=== PATIENT | male | born 1995 | race Caucasian/White ===

== ENCOUNTER 2020-06-15 15:36 | Inpatient (IN) | payer BC, OTHER ==
[2020-06-15 16:07] VITALS: BMI 26.2
--- OUTSIDE RECORDS SUMMARY | 2020-06-15 16:32 | XMS ---
:1995 Author Organization [facility] Care Team Providers Name Role Phone STU CASSIDY Unavailable Unavailable Re-disclosure Warning The records that you are about to access may contain information from federally- assisted alcohol or drug abuse programs. If such information is present, then the following federally mandated warning applies: This information has been disclosed to you from records protected by federal confidentiality rules (42 CFR part 2). The federal rules prohibit you from making any further disclosure of this information unless further disclosure is expressly permitted by the written consent of the person to whom it pertains or as otherwise permitted by 42 CFR part 2. A general authorization for the release of medical or other information is NOT sufficient for this purpose. The Federal rules restrict any use of the information to criminally investigate or prosecute any alcohol or drug abuse patient.The records that you are about to access may contain highly sensitive health information, the redisclosure of which is protected by Article 27-F of the [facility] Public Health law. If you continue you may haveaccess to information: Regarding HIV / AIDS; Provided by facilities licensed or operated by the [facility] Office of Mental Health; or Provided by the [facility] Office for People With Developmental Disabilities. If such information is present, then the following [facility] mandated warning applies: This information has been disclosed to you from confidential records which are protected by state law. State law prohibits you from making any further disclosure of this information without the specific written consent of the person to whom it pertains, or as otherwise permitted by law. Any unauthorized further disclosure in violation of state law may result in a fine or senior living sentence or both. A general authorization for the release of medical or other information is NOT sufficient authorization for further disclosure. Encounters Encounter Providers Location Date Indications Data Source(s ) Outpatient Attender: ANGE, 12/18/2019 Z03.818 [facility] STU CuevaAdmitter: 02:52:00 AM Health Care STU CASSIDY EDT Corpora tion Z03.818 Insurance Providers Payer name Policy type / Policy ID Covered Covered libertarian's Policy Plan Coverage type libertarian ID relationship to English Information english GHI CBP [id number] SP [id number] OUTPT BC PPO [id number] SP [id number] Problems, Conditions, and Diagnoses Code Display Name Description Problem Type Effective Data Sour ce(s) Dates Z03.818 Encounter for ENCNTR FOR OBS Diagnosis 12/18/2019 [facility] observation for FOR SUSP EXPSR TO 02:52:00 AM [facility] suspected OTH BIOLG AGENTS [employer] poration exposure to other RULED OUT biological agents ruled out Results ID Date Data Source [id number] 12/18/2019 12:00:00 AM EDT [facility] Name Value Range Interpretation Code Description Data Margarita rce(s) Supporting Document(s ) 2019-nCoV [facility] RNA XXX TERESA+probe- Imp This lab was ordered by [facility] and reported by [employer] Procedure
[2020-06-15] MEDS ORDERED: KETOROLAC TROMETHAMINE 30 MG/1 ML VIAL IVPUSH ONE (16:42)
[2020-06-15] MEDS ORDERED: PANTOPRAZOLE SODIUM 40 MG VIAL IVPUSH ONE (16:42)
--- NOTE | 2020-06-15 16:45 | PDOC ---
History of Present Illness - General Chief Complaint: Pain Stated Complaint: ABD.PAIN Time Seen by Provider: 06/15/20 16:15 History Source: Patient Exam Limitations: No Limitations - History of Present Illness Initial Comments: 06/15/20 16:43 25 year-old male no significant past medical history presents the ED with 2 weeks of left upper quadrant pain. Of note patient was recently COVID positive in December. Patient describes the pain as sharp constant worse with lying down and with palpation. There is no associated nausea vomiting or diarrhea. Patient was seen and evaluated at Dr. Agustin's office and sent to the emergency room for further evaluation and potential admission. Pt otherwise denies: fevers, chills, syncope, lightheadedness, dizziness, headaches, neck pain, chest pain, shortness of breath, palpitations, back pain, nausea, vomiting, diarrhea, constipation. 06/15/20 21:59 Past History - Medical History Allergies/Adverse Reactions: Allergies Allergy/AdvReac Type Severity Reaction Status Date / Time No Known Allergies Allergy Verified 06/15/20 16:02 Home Medications: Ambulatory Orders NK [No Known Home Medication] 06/15/20 COPD: No - Psycho-Social/Smoking History Smoking History: Never smoked Have you smoked in the past 12 months: No - Substance Abuse Hx (Audit-C & DAST Scrn) How often the patient has a drink containing alcohol: Never Score: In Men: 4 or > Positive; In Women: 3 or > Positive: 0 Screen Result (Pos requires Nsg. Audit-10AR): Negative In the last yr the pt used illegal drug/Rx for NonMed reason: No Score: Yes response is considered Positive: 0 Screen Result (Positive result requires Nsg. DAST-10): Negative *Physical Exam - Vital Signs Last Vital Signs Temp Pulse Resp BP Pulse Ox 97.6 F 88 16 127/69 100 06/15/20 16:02 06/15/20 16:02 06/15/20 16:02 06/15/20 16:02 06/15/20 16:02 - Physical Exam 06/15/20 16:44 Gen: AAOx 3, no acute distress, comfortable, no signs of respiratory distress HENT: atraumatic, normocephalic with no laceration or contusion. Nasal mucosa without erythema. Oropharynx without erythema or exudates. Mucous membranes mo ist. EYES: PERRL, EOM intact, conjunctiva pink NECK: supple; trachea midline; no JVD, no lymphadenopathy, or thyromegaly CV: RRR no murmurs, gallops, or rubs. CHEST: CTA b/l no wheezing, rales or rhonchi ABD: +BS/ND. TTP to LUQ and LLQ; rest of abdomen soft, no rebound, no guarding EXTREMITY: no cyanosis or erythema. 2+ dorsalis pedis, posterior tibial, and radial pulse. No pedal edema; no calf swelling or tenderness SKIN: no rash, warm and dry, no diaphoresis HEME: no purpura or ecchymosis NEURO: normal speech, CN II-XII intact, sensation intact, normal gait, no cerebellar deficits MS: 5/5 strength in all extremities, FROM intact in all extremities. ED Treatment Course - LABORATORY CBC & Chemistry Diagram: 06/15/20 18:15 06/15/20 18:15 Medical Decision Making - Medical Decision Making 06/15/20 16:45 25-year-old male with left quadrant abdominal pain Vital signs stable We will obtain labs and CT Abdomen & pelvis Will administer Toradol and Protonix Will reassess based on results Labs show a white blood cell count of 7.6 H/H 13.9/43.7 MCV 60.2 MCH 19.1 RDW 16 Chemistry significant for elevated BUN With a creatinine of 1.2 (1L NS given) AST slightly elevated at [address] shows mild splenomegaly Multiple nonspecific mildly prominent mesenteric lymph nodes are seen centrally hyperplastic in nature versus other pathology Nondisplaced fracture of the left 10th rib is seen along the midaxillary line which appears to be subacute Dr. Katya Charles and myself spoke with Dr. Agustin who wishes the patient be admitted for further evaluation Monospot added to patient's labs Patient admitted for further treatment and care Discharge - Discharge Information Problems reviewed: Yes Clinical Impression/Diagnosis: Splenomegaly, Mesenteric lymphadenopathy Rib fracture Qualifiers: Encounter type: initial encounter Rib fracture type: single rib Fracture type: closed Laterality: left Qualified Code(s): S22.32XA - Fracture of one rib, left side, initial encounter for closed fracture Condition: Fair - Admission Yes - Follow up/Referral - Patient Discharge Instructions - Post Discharge Activity
[2020-06-15] MEDS ORDERED: KETOROLAC TROMETHAMINE 30 MG/1 ML VIAL ONE (17:12)
[2020-06-15] MEDS ORDERED: PANTOPRAZOLE SODIUM 40 MG/100 ML BAG IVPB ONE (17:12)
[2020-06-15 18:38] LABS: BASO % 0.4 % (0-2.0); EOS % 0.4 % (0-4.5); HEMATOCRIT 43.7 % (35.4-49); HEMOGLOBIN 13.9 GM/dL (11.7-16.9); LYMPH % 24.1 % (8-40); MCHC 31.8 g/dl (32.0-35.9); MEAN CELL VOLUME 60.2 fl (80-96); MEAN PLT VOLUME 9.4 fl (7.5-11.1); NEUT % 68.1 % (42.8-82.8); PLATELET COUNT 249 K/MM3 (134-434); WHITE BLOOD COUNT 7.6 K/mm3 (4.0-10.0)
[2020-06-15 18:39] LABS: MCH 19.1 pg (25.7-33.7); RBC 7.27 M/mm3 (4.00-5.60)
[2020-06-15] MEDS ORDERED: SODIUM CHLORIDE 0.9% 500 ML INFUS.BAG IV ONE (18:42)
[2020-06-15 18:45] LABS: INR 1.07 (0.83-1.09); PROTHROMBIN TIME (PATIENT) 12.6 SEC (9.7-13.0)
[2020-06-15 18:48] LABS: URINE APPEARANCE CLEAR; URINE BILIRUBIN NEGATIVE (NEGATIVE); URINE COLOR YELLOW; URINE GLUCOSE (UA) NEGATIVE (NEGATIVE); URINE KETONE NEGATIVE (NEGATIVE); URINE LEUK ESTERASE NEGATIVE (NEGATIVE); URINE NITRITE NEGATIVE (NEGATIVE); URINE PROTEIN NEGATIVE (NEGATIVE); URINE UROBILINOGEN 0.2 mg/dL (0.2-1.0)
--- NOTE | 2020-06-15 19:09 | PDOC ---
*Physical Exam - Vital Signs Last Vital Signs Temp Pulse Resp BP Pulse Ox 97.6 F 88 16 127/69 98 06/15/20 16:02 06/15/20 16:02 06/15/20 16:02 06/15/20 16:02 06/15/20 18:12 - Physical Exam 06/15/20 19:05 gen: aaox3, nad abd: soft, L12th rib ttp, LUQ ttp, L mid flank ttp, no ecchymosis, no other ttp ED Treatment Course - LABORATORY CBC & Chemistry Diagram: 06/15/20 18:15 06/15/20 18:15 - ADDITIONAL ORDERS Additional order review: Laboratory Results 06/15/20 06/15/20 18:15 18:15 PT with INR 12.60 INR 1.07 Urine Color Yellow Urine Appearance Clear Urine pH 7.0 Ur Specific [place] 1.025 Urine Protein Negative Urine Glucose (UA) Negative Urine Ketones Negative Urine Blood Negative Urine Nitrite Negative Urine Bilirubin Negative Urine Urobilinogen 0.2 Ur Leukocyte Esterase Negative 06/15/20 18:15 RBC 7.27 H MCV 60.2 L MCHC 31.8 L RDW 16.0 H MPV 9.4 Neutrophils % 68.1 Lymphocytes % 24.1 Monocytes % 7.0 Eosinophils % 0.4 Basophils % 0.4 - Medications Given in the ED: ED Medications Discontinued Medications Generic Name Dose Route Start Last Admin Trade Name Averyq PRN Reason Stop Dose Admin Ketorolac Tromethamine 30 mg 06/15/20 16:42 06/15/20 18:07 Toradol Injection - IVPUSH 06/15/20 16:43 30 mg ONCE ONE Administration Pantoprazole Sodium 40 mg 06/15/20 16:42 06/15/20 18:07 Protonix Iv IVPUSH 06/15/20 16:43 40 mg ONCE ONE Administration Medical Decision Making - Medical Decision Making 06/15/20 19:05 a/p: 25yo male with L sided abd pain since playing soccer 2 weeks ago -no assoc n/v/d -no hematuria -no blood in stool -doesn't remember trauma -sent by Dr. Agustin -labs sent were reviewed ua neg, cbc stable, no elevated wbc, hgb stable 06/15/20 21:09 pt with mesenteric lymph nodes, rib fx, splenomegaly will need admission case discussed with Dr. Agustin, requests Dr. Keating gi consult, Dr. Lorenzo consult will microblog symphony for admission Discharge - Discharge Information Problems reviewed: Yes Clinical Impression/Diagnosis: Rib fracture, Splenomegaly, Mesenteric lymphadenopathy Condition: Fair - Admission Yes - Follow up/Referral Referrals: Waleska Agustin MD [Primary Care Provider] - - Patient Discharge Instructions - Post Discharge Activity
[2020-06-15 19:19] LABS: ALBUMIN 4.8 g/dl (3.4-5.0); BILIRUBIN,TOTAL 0.8 mg/dL (0.2-1); BLOOD UREA NITROGEN 19.3 mg/dL (7-18); CALCIUM 9.9 mg/dL (8.5-10.1); CREATININE 1.2 mg/dL (0.55-1.3); POTASSIUM 4.6 mmol/L (3.5-5.1); TOT PROT 8.2 g/dl (6.4-8.2)
[2020-06-15 20:48] LABS: ANISOCYTOSIS 1+; MACROCYTOSIS 1+; OVALOCYTE 1+; PLATELET ESTIMATE ADEQUATE
--- OUTSIDE RECORDS SUMMARY | 2020-06-15 21:28 | XMS ---
:1995 Author Organization [facility] Care Team Providers Name Role [...] is protected by Article 27-F of the [facility] Public Health law. If you continue you may haveaccess to information: Regarding HIV / AIDS; Provided by facilities licensed or operated by the [facility] Office of Mental Health; or Provided by the [facility] Office for People With Developmental Disabilities. If such information is present, then the following [facility] mandated warning applies: This information has been [...] Source(s ) Outpatient Attender: ANGE, 12/18/2019 Z03.818 [facility] STU CuevaAdmitter: 02:52:00 AM Health Care STU CASSIDY EDT Corpor[employer] tion Z03.818 Insurance Providers Payer name Policy type / Policy ID Covered Covered republican's Policy Plan Coverage type republican ID relationship to English Information english GHI CBP [id number] SP [id number] OUTPT BC PPO [id number] SP [id number] Problems, Conditions, and Diagnoses Code Display Name Description Problem Type Effective Data Sour ce(s) Dates Z03.818 Encounter for ENCNTR FOR OBS Diagnosis 12/18/2019 [facility] observation for FOR SUSP EXPSR TO 02:52:00 AM [facility] suspected OTH BIOLG AGENTS [employer] poration exposure to other RULED OUT biological agents ruled out Results ID Date Data Source [id number] 12/18/2019 12:00:00 AM EDT [facility] Name Value Range Interpretation Code Description Data Margarita rce(s) Supporting Document(s ) 2019-nCoV [facility] RNA XXX TERESA+probe- Imp This lab was ordered by [facility] and reported by [email or web address] Procedure
--- NOTE | 2020-06-15 23:01 | HP ---
CHIEF COMPLAINT: left sided pain under rib cage PCP:Dr. Ashraf HISTORY OF PRESENT ILLNESS: 25 year-old male with no significant past medical history who presents the ED with 2 weeks of left upper quadrant pain described as under his left rib cage. Patient described pain as sharp,constant, worse with lying down and with palpation. He denied chest pain, shortness of breath, nausea, vomiting or diarrhea. Patient was recently COVID positive in December. Patient was seen and evaluated at Dr. Agustin's office and sent to the emergency room for further evaluation and admission. He was found to have a left rib fracture, splenomegaly and messenteric lymph nodes as seen on CT scan of abdomen and pelvis. Recent Travel: no PAST MEDICAL HISTORY: none PAST SURGICAL HISTORY: none Social History: Smoking:no Alcohol:no Drugs: no Allergies No Known Allergies Allergy (Verified 06/15/20 16:02) HOME MEDICATIONS: Home Medications Medication Instructions Recorded NK [No Known Home Medication] 06/15/20 REVIEW OF SYSTEMS CONSTITUTIONAL: Absent: fever, chills, diaphoresis, generalized weakness, malaise, loss of appetite, weight change HEENT: Absent: rhinorrhea, nasal congestion, throat pain, throat swelling, difficulty swallowing, mouth swelling, ear pain, eye pain, visual changes CARDIOVASCULAR: Absent: chest pain, syncope, palpitations, irregular heart rate, lightheadedness, peripheral edema RESPIRATORY: Absent: cough, shortness of breath, dyspnea with exertion, orthopnea, wheezing, stridor, hemoptysis GASTROINTESTINAL: Absent: pain under left rib cage, abdominal pain, abdominal distension, nausea, vomiting, diarrhea, constipation, melena, hematochezia GENITOURINARY: Absent: dysuria, frequency, urgency, hesitancy, hematuria, flank pain, genital pain MUSCULOSKELETAL: Absent: myalgia, arthralgia, joint swelling, back pain, neck pain SKIN: Absent: rash, itching, pallor HEMATOLOGIC/IMMUNOLOGIC: Absent: easy bleeding, easy bruising, lymphadenopathy, frequent infections ENDOCRINE: Absent: unexplained weight gain, unexplained weight loss, heat intolerance, cold intolerance NEUROLOGIC: Absent: headache, focal weakness or paresthesias, dizziness, unsteady gait, seizure, mental status changes, bladder or bowel incontinence PSYCHIATRIC: Absent: anxiety, depression, suicidal or homicidal ideation, hallucinations. PHYSICAL EXAMINATION Vital Signs - 24 hr 06/15/20 06/15/20 06/15/20 16:02 18:12 19:32 Temperature 97.6 F Pulse Rate 88 Pulse Rate [ 67 Left Radial] Respiratory 16 18 Rate Blood Pressure 127/69 Blood Pressure 135/61 [Right Arm] O2 Sat by Pulse 100 98 100 Oximetry (%) General no acute distress Vital signs reviewed afebrile Neuro no focal deficits Lungs CTA nonlabored breathing effort no rales no wheezing no use of accessory muscles Heart s1s2 rate regular no murmurs Abdomen soft nontender nondistended Extremities warm to touch no pitting edema no cyanosis Skin nail beds and lips pink no cyanosis Mood calm Laboratory Results - last 24 hr 06/15/20 06/15/20 06/15/20 18:15 18:15 18:15 WBC 7.6 RBC 7.27 H Hgb 13.9 Hct 43.7 MCV 60.2 L MCH 19.1 L MCHC 31.8 L RDW 16.0 H Plt Count 249 MPV 9.4 Absolute Neuts (auto) 5.2 Neutrophils % 68.1 Lymphocytes % 24.1 Monocytes % 7.0 Eosinophils % 0.4 Basophils % 0.4 Nucleated RBC % 0 Hypochromia 2+ Platelet Estimate Adequate Platelet Comment Slide scanned. Polychromasia 1+ Poikilocytosis 1+ Anisocytosis 1+ Microcytosis 2+ Macrocytosis 1+ Ovalocytes 1+ PT with INR 12.60 INR 1.07 Sodium Potassium Chloride Carbon Dioxide Anion Gap BUN Creatinine Est GFR (CKD-EPI)AfAm Est GFR (CKD-EPI)NonAf Random Glucose Calcium Total Bilirubin AST ALT Alkaline Phosphatase Total Protein Albumin Lipase Urine Color Yellow Urine Appearance Clear Urine pH 7.0 Ur Specific [place] 1.025 Urine Protein Negative Urine Glucose (UA) Negative Urine Ketones Negative Urine Blood Negative Urine Nitrite Negative Urine Bilirubin Negative Urine Urobilinogen 0.2 Ur Leukocyte Esterase Negative 06/15/20 18:15 WBC RBC Hgb Hct MCV MCH MCHC RDW Plt Count MPV Absolute Neuts (auto) Neutrophils % Lymphocytes % Monocytes % Eosinophils % Basophils % Nucleated RBC % Hypochromia Platelet Estimate Platelet Comment Polychromasia Poikilocytosis Anisocytosis Microcytosis Macrocytosis Ovalocytes PT with INR INR Sodium 141 Potassium 4.6 Chloride 103 Carbon Dioxide 32 Anion Gap 6 L BUN 19.3 H Creatinine 1.2 Est GFR (CKD-EPI)AfAm 96.15 Est GFR (CKD-EPI)NonAf 82.96 Random Glucose 82 Calcium 9.9 Total Bilirubin 0.8 AST 55 H ALT 48 Alkaline Phosphatase 113 Total Protein 8.2 Albumin 4.8 Lipase 138 Urine Color Urine Appearance Urine pH Ur Specific [place] Urine Protein Urine Glucose (UA) Urine Ketones Urine Blood Urine Nitrite Urine Bilirubin Urine Urobilinogen Ur Leukocyte Esterase ASSESSMENT/PLAN: 25 year-old male with no significant past medical history who presents with 2 weeks of left upper quadrant pain described as under his left rib cage. Patient was sent from Dr. Agustin's office to the emergency room for further evaluation and admission. He was found to have a left rib fracture, splenomegaly and messenteric lymph nodes as seen on CT scan of abdomen and pelvis. He is being admitted for further medical evaluation by Gastroenterology and Oncology. 1. Left Rib Fracture (etiology unclear) c/w pain meds as needed 2. Splenomeglay (incidental finding) GI- Dr. Ross consulted for further evaluation 3. Mesenteric Lymph Nodes(incidental finding) RBC 7.27 otherwise labs normal calcium 9.9 Heme/Oncology - Dr. Lorenzo consulted for further workup DVT Prophylaxis OOB as tolerated FEN no IVF indicated BMP daily regular diet Family Medical History Family History: Denies Visit type - Emergency Visit Emergency Visit: Yes ED Registration Date: 06/15/20 Care time: The patient presented to the Emergency Department on the above date and was hospitalized for further evaluation of their emergent condition. - New Patient This patient is new to me today: Yes Date on this admission: 06/15/20 - Critical Care Critical Care patient: No
[2020-06-16 06:26] LABS: HEMATOCRIT 39.3 % (35.4-49); HEMOGLOBIN 12.4 GM/dL (11.7-16.9); MCHC 31.6 g/dl (32.0-35.9); MEAN CELL VOLUME 59.3 fl (80-96); MEAN PLT VOLUME 8.6 fl (7.5-11.1); PLATELET COUNT 195 K/MM3 (134-434); RBC 6.62 M/mm3 (4.00-5.60); WHITE BLOOD COUNT 6.4 K/mm3 (4.0-10.0)
[2020-06-16 06:32] LABS: MCH 18.7 pg (25.7-33.7)
[2020-06-16 06:46] LABS: BLOOD UREA NITROGEN 20.7 mg/dL (7-18); CREATININE 1.3 mg/dL (0.55-1.3); POTASSIUM 4.2 mmol/L (3.5-5.1)
--- NOTE | 2020-06-16 08:31 | CONSULT ---
Consultation: REQUESTING PROVIDER: Dr. Charles CONSULT REQUEST: We have been asked to medically evaluate this patient for splenomegaly, Mesenteric LAD. 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 Patient routinely plays soccer and was in his usual state of health until about 2 weeks ago. He recalls after a soccer game, he felt sudden onset sharp, 8/10 left sided abdominal/rib pain that worsens with lying supine and was tender to palpation. He was tried Ibproufen without relief. The pain has persisted since onset and about 2 days ago, he felt a mass in the area prompting him to visit his PCP (Dr. Agustin) where he was instructed to visit [facility]. This is the first time he feels having pain in the Left lateral rib cage. Patient endorses being physically active and having increased his abdominal work outs lately. He also endorses recent falls while playing soccer. No associated syncopal symptoms. No associated pain with inspiration. Denies any recent travel, Sick contacts or medication changes. Denies any fevers, chills, chest pain, SOB, nausea, vomiting, diarrhea, constipation. PMHx: As per HPI PSHx: Childhood surgery of ?Hematoma, Patient unable to recall details. 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 NECK: Supple LUNGS: Diminished breath sounds at the bases, No wheezes HEART: Regular rate and rhythm, normal S1 and S2 without murmur ABDOMEN: Soft, LUQ tender to palpation, not distended, + bowel sounds, no guarding, no rebound MUSCULOSKELETAL: No CVA tenderness. EXTREMITIES: No peripheral edema. NEUROLOGICAL: Cranial nerves II-XII intact. No FND. SKIN: Warm, dry Laboratory Last Values WBC 6.4 K/mm3 (4.0-10.0) 06/16/20 05:50 RBC 6.62 M/mm3 (4.00-5.60) H 06/16/20 05:50 Hgb 12.4 GM/dL (11.7-16.9) 06/16/20 05:50 Hct 39.3 % (35.4-49) 06/16/20 05:50 MCV 59.3 fl (80-96) L 06/16/20 05:50 MCH 18.7 pg (25.7-33.7) L 06/16/20 05:50 MCHC 31.6 g/dl (32.0-35.9) L 06/16/20 05:50 RDW 16.0 % (11.9-15.9) H 06/16/20 05:50 Plt Count 195 K/MM3 (134-434) D 06/16/20 05:50 MPV 8.6 fl (7.5-11.1) 06/16/20 05:50 Absolute Neuts (auto) 5.2 K/mm3 (1.5-8.0) 06/15/20 18:15 Neutrophils % 68.1 % (42.8-82.8) 06/15/20 18:15 Lymphocytes % 24.1 % (8-40) 06/15/20 18:15 Monocytes % 7.0 % (3.8-10.2) 06/15/20 18:15 Eosinophils % 0.4 % (0-4.5) 06/15/20 18:15 Basophils % 0.4 % (0-2.0) 06/15/20 18:15 Nucleated RBC % 0 % (0-0) 06/15/20 18:15 Hypochromia 2+ 06/15/20 18:15 Platelet Estimate Adequate 06/15/20 18:15 Platelet Comment Slide scanned. 06/15/20 18:15 Polychromasia 1+ 06/15/20 18:15 Poikilocytosis 1+ 06/15/20 18:15 Anisocytosis 1+ 06/15/20 18:15 Microcytosis 2+ 06/15/20 18:15 Macrocytosis 1+ 06/15/20 18:15 Ovalocytes 1+ 06/15/20 18:15 PT with INR 12.60 SEC (9.7-13.0) 06/15/20 18:15 INR 1.07 (0.83-1.09) 06/15/20 18:15 Sodium 142 mmol/L (136-145) 06/16/20 05:50 Potassium 4.2 mmol/L (3.5-5.1) 06/16/20 05:50 Chloride 105 mmol/L (98-107) 06/16/20 05:50 Carbon Dioxide 31 mmol/L (21-32) 06/16/20 05:50 Anion Gap 6 MMOL/L (8-16) L 06/16/20 05:50 BUN 20.7 mg/dL (7-18) H 06/16/20 05:50 Creatinine 1.3 mg/dL (0.55-1.3) 06/16/20 05:50 Est GFR (CKD-EPI)AfAm 87.28 06/16/20 05:50 Est GFR (CKD-EPI)NonAf 75.30 06/16/20 05:50 Random Glucose 89 mg/dL (74-106) 06/16/20 05:50 Calcium 9.0 mg/dL (8.5-10.1) 06/16/20 05:50 Total Bilirubin 0.8 mg/dL (0.2-1) 06/15/20 18:15 AST 55 U/L (15-37) H 06/15/20 18:15 ALT 48 U/L (13-61) 06/15/20 18:15 Alkaline Phosphatase 113 U/L (45-117) 06/15/20 18:15 Total Protein 8.2 g/dl (6.4-8.2) 06/15/20 18:15 Albumin 4.8 g/dl (3.4-5.0) 06/15/20 18:15 Lipase 138 U/L (73-393) 06/15/20 18:15 Urine Color Yellow 06/15/20 18:15 Urine Appearance Clear 06/15/20 18:15 Urine pH 7.0 (5.0-8.0) 06/15/20 18:15 Ur Specific [place] 1.025 (1.010-1.035) 06/15/20 18:15 Urine Protein Negative (NEGATIVE) 06/15/20 18:15 Urine Glucose (UA) Negative (NEGATIVE) 06/15/20 18:15 Urine Ketones Negative (NEGATIVE) 06/15/20 18:15 Urine Blood Negative (NEGATIVE) 06/15/20 18:15 Urine Nitrite Negative (NEGATIVE) 06/15/20 18:15 Urine Bilirubin Negative (NEGATIVE) 06/15/20 18:15 Urine Urobilinogen 0.2 mg/dL (0.2-1.0) 06/15/20 18:15 Ur Leukocyte Esterase Negative (NEGATIVE) 06/15/20 18:15 ASSESSMENT/PLAN: 25 y/o M with 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 Agustin) office. Initial labwork revealed hypochromic, microcytosis. Imaging revealed Splenomegaly, Mesenteric LAD, Left 10th Rib Fx. Patient was admitted to med/surg and Heme/Onc was consulted for Mild Splenomegaly (13.7 cm), Mesenteric LAD. #Splenomegaly + Mesenteric LAD -Incidentally found on imaging in the setting of Microcytosis, which can be underlying Thalassemia -Will need follow up CT Imaging -Follow Monospot, HIV, Thalassemia bloodwork Dispo: We will continue to follow the patient. Thank you for this consultative opportunity. Visit type - Emergency Visit Emergency Visit: Yes ED Registration Date: 06/15/20 Care time: The patient presented to the Emergency Department on the above date and was hospitalized for further evaluation of their emergent condition. - New Patient This patient is new to me today: Yes Date on this admission: 06/19/20 - Critical Care Critical Care patient: No ATTENDING PHYSICIAN STATEMENT I saw and evaluated the patient. I reviewed the resident's note and discussed the case with the resident. I agree with the resident's findings and plan as documented. SUBJECTIVE: OBJECTIVE: ASSESSMENT AND PLAN:
[2020-06-16] MEDS ORDERED: LIDOCAINE 5% TOPICAL PATCH TP SCH (10:00)
[2020-06-16] MEDS ORDERED: LIDOCAINE 5% TOPICAL PATCH ONE (10:32)
--- NOTE | 2020-06-16 11:11 | PN ---
Progress Note, Physician Chief Complaint: Mesenteric lymphadenopathy Left rib fracture Mild splenomegaly History of Present Illness: 25 year-old male with no significant past medical history who presents the ED with 2 weeks of left upper quadrant pain described as under his left rib cage. Patient described pain as sharp,constant, worse with lying down and with palpation. He denied chest pain, shortness of breath, nausea, vomiting or diarrhea. Patient was recently COVID positive in December. Patient was seen and evaluated at Dr. Agustin's office and sent to the emergency room for further evaluation and admission. He was found to have a left rib fracture, splenomegaly and messenteric lymph nodes as seen on CT scan of abdomen and pelvis. Currently NAD, denies any pain, mild discomfort on deep breathing. Seen by Oncology for lymphadenopathy COVID 19 PCR, EBV and HIV pending- pt verbally consented for HIV testing. - Current Medication List Current Medications: Active Medications Lidocaine (Lidoderm Patch -) 1 patch TP DAILY [facility] Last Admin: 06/16/20 10:47 Dose: 1 patch Documented by: Miscellaneous (Lidoderm Patch Removal) 1 each [facility] DAILY@2200 LALI - Objective Vital Signs: Vital Signs Temperature 97.6 F 06/16/20 06:34 Pulse Rate 61 06/16/20 06:34 Respiratory Rate 18 06/16/20 06:34 Blood Pressure 147/83 06/16/20 06:34 O2 Sat by Pulse Oximetry (%) 99 06/16/20 06:34 Constitutional: Yes: Well Nourished, No Distress, Calm Cardiovascular: Yes: Regular Rate and Rhythm Respiratory: Yes: Regular, CTA Bilaterally Gastrointestinal: Yes: Normal Bowel Sounds, Soft Genitourinary: Yes: WNL Musculoskeletal: Yes: WNL Extremities: Yes: WNL Edema: No Peripheral Pulses WNL: Yes Neurological: Yes: Alert, Oriented Psychiatric: Yes: Alert, Oriented Labs: CBC, BMP 06/16/20 05:50 06/16/20 05:50 INR, PTT INR 1.07 (0.83-1.09) 06/15/20 18:15 Problem List - Problems (1) Mesenteric lymphadenopathy Assessment/Plan: -Needs follow up outpatient with oncology -May need PET scan in 2 months Problems reviewed: Yes Code(s): R59.0 - LOCALIZED ENLARGED LYMPH NODES (2) Rib fracture Assessment/Plan: -Avoid active sports -Tyenol 500 mg , 1-2 tabs Q6H PRN or Advil 400 mg po tid prn with food Problems reviewed: Yes Code(s): S22.39XA - FRACTURE OF ONE RIB, UNSP SIDE, INIT FOR CLOS FX Qualifiers: Encounter type: initial encounter Rib fracture type: single rib Fracture type: closed Laterality: left Qualified Code(s): S22.32XA - Fracture of one rib, left side, initial encounter for closed fracture (3) Splenomegaly Assessment/Plan: -Mild -Labs unremarkable Problems reviewed: Yes Code(s): R16.1 - SPLENOMEGALY, NOT ELSEWHERE CLASSIFIED Assessment/Plan See problem list D/C home with outpatient follow up
[2020-06-16 13:09] VITALS: BP 118/60; PULSE 63; TEMP 98.3
[2020-06-16] MEDS ORDERED: LIDOCAINE PATCH REMOVAL MC SCH (22:00)
== END 2020-06-16 13:00 | disposition home or self-care (01) | DRG 206 ==
LOC: JER 15:36 → JERBED 21:20
PROVIDERS: ADMIT Family Medicine; ATTEND Family Medicine
DX: S22.32XA Fracture of one rib, left side, initial encounter for closed fracture (principal); R59.0 Localized enlarged lymph nodes; R16.1 Splenomegaly, not elsewhere classified; X58.XXXA Exposure to other specified factors, initial encounter; Y93.9 Activity, unspecified; Y92.89 Other specified places as the place of occurrence of the external cause; Y99.9 Unspecified external cause status
CPT/HCPCS: 36415; 74177-TC; 80048; 80053; 81003; 83690; 85025; 85027; 85610; 86308; 87389; 99285-25; C9803; Q9967; U0003

== ENCOUNTER 2022-07-11 15:27 | Emergency (ER) | payer OTHER ==
[2022-07-11] MEDS ORDERED: LIDOCAINE 5% TOPICAL PATCH TP ONE (15:41)
[2022-07-11] MEDS ORDERED: ACETAMINOPHEN 325 MG TABLET (FP) PO ONE (15:41)
[2022-07-11] MEDS ORDERED: KETOROLAC TROMETHAMINE 30 MG/1 ML VIAL IM ONE (15:41)
[2022-07-11] MEDS ORDERED: KETOROLAC TROMETHAMINE 60 MG/2 ML VIAL ONE (15:43)
[2022-07-11] MEDS ORDERED: LIDOCAINE 5% TOPICAL PATCH ONE (15:44)
[2022-07-11] MEDS ORDERED: ACETAMINOPHEN 325 MG TABLET (FP) ONE ×2 (15:44→15:45)
[2022-07-11 15:53] VITALS: BP 125/77; PULSE 61; RESP 20; TEMP 98.2; BMI 25.7
[2022-07-11] MEDS ORDERED: LIDOCAINE PATCH REMOVAL MC SCH (22:00)
== END 2022-07-11 16:36 | disposition home or self-care (01) ==
LOC: FER 15:27
PROC: 3E023GC Introduction of Other Therapeutic Substance into Muscle, Percutaneous Approach (ICD-10-PCS; principal; 2022-07-11)
DX: M54.50 Low back pain, unspecified (principal)
CPT/HCPCS: 99284-25

== ENCOUNTER 2022-10-08 09:51 | Emergency (ER) | payer OTHER ==
[2022-10-08] MEDS ORDERED: IBUPROFEN 600 MG TABLET (FP) PO ONE ×2 (09:54→10:07)
[2022-10-08 10:26] VITALS: BP 133/85; PULSE 71; RESP 18; TEMP 98.9; BMI 25.7
== END 2022-10-08 10:55 | disposition home or self-care (01) ==
LOC: FER 09:51
DX: S50.01XA Contusion of right elbow, initial encounter (principal); S39.012A Strain of muscle, fascia and tendon of lower back, initial encounter; W10.9XXA Fall (on) (from) unspecified stairs and steps, initial encounter
CPT/HCPCS: 73070-TC-RT-FY; 99283-25

== ENCOUNTER 2023-12-16 14:52 | Emergency (ER) | payer OTHER ==
[2023-12-16 15:06] VITALS: BP 149/91; PULSE 98; RESP 18; TEMP 97.8; BMI 26.4
== END 2023-12-16 17:05 | disposition home or self-care (01) ==
LOC: FER 14:52
DX: S80.911A Unspecified superficial injury of right knee, initial encounter (principal); S69.91XA Unspecified injury of right wrist, hand and finger(s), initial encounter; S59.901A Unspecified injury of right elbow, initial encounter; M25.561 Pain in right knee; M25.531 Pain in right wrist; Y04.0XXA Assault by unarmed brawl or fight, initial encounter; Y93.72 Activity, wrestling
CPT/HCPCS: 73070-TC-RT-FY; 73110-TC-RT-FY; 73130-TC-RT-FY; 73562-TC-RT-FY; 99284-25

== ENCOUNTER 2024-10-25 13:49 | Emergency (ER) | payer OTHER ==
[2024-10-25 14:00] VITALS: BP 129/77; PULSE 89; RESP 16; TEMP 98.2; BMI 26.4
[2024-10-25] MEDS ORDERED: LIDOCAINE 5% TOPICAL PATCH ONE (14:21)
[2024-10-25] MEDS ORDERED: ACETAMINOPHEN 500 MG TABLET (FP) ONE (14:23)
[2024-10-25] MEDS ORDERED: IBUPROFEN 400 MG TABLET (FP) PO ONE (14:23)
[2024-10-25] MEDS: LIDOCAINE 5% TOPICAL PATCH TP ONE (14:27)
[2024-10-25] MEDS: IBUPROFEN 400 MG TABLET (FP) PO ONE (14:27)
[2024-10-25] MEDS: ACETAMINOPHEN 500 MG TABLET (FP) PO ONE (14:28)
[2024-10-25] MEDS: IBUPROFEN 600 MG TABLET (FP) PO ONE (14:29)
[2024-10-25] MEDS ORDERED: LIDOCAINE PATCH REMOVAL MC SCH (22:00)
== END 2024-10-25 14:45 | disposition home or self-care (01) ==
LOC: FER 13:49
DX: S39.92XA Unspecified injury of lower back, initial encounter (principal); Y30.XXXA Falling, jumping or pushed from a high place, undetermined intent, initial encounter; Y35.811A Legal intervention involving manhandling, law enforcement official injured, initial encounter
CPT/HCPCS: 99283-25

== ENCOUNTER 2025-03-11 22:50 | Emergency (ER) | payer OTHER ==
[2025-03-11 23:00] VITALS: BP 139/94; PULSE 76; RESP 18; TEMP 98.6; BMI 26.4
[2025-03-11] MEDS ORDERED: DIPHTH,PERTUSS(ACELL),TET 0.5 ML DISP.SYRIN IM ONE (23:14)
[2025-03-11] MEDS: DIPHTH,PERTUSS(ACELL),TET 0.5 ML DISP.SYRIN IM ONE (23:24)
== END 2025-03-11 23:29 | disposition home or self-care (01) ==
LOC: FER 22:50
PROC: 0HQ1XZZ Repair Face Skin, External Approach (ICD-10-PCS; principal; 2025-03-11)
PROC: 3E0234Z Introduction of Serum, Toxoid and Vaccine into Muscle, Percutaneous Approach (ICD-10-PCS; 2025-03-11)
DX: S01.111A Laceration without foreign body of right eyelid and periocular area, initial encounter (principal); Z23 Encounter for immunization; Y35.811A Legal intervention involving manhandling, law enforcement official injured, initial encounter
CPT/HCPCS: 90715; 99284-25